=== PATIENT | female | born 1955 | race Two or more races ===

== ENCOUNTER → 2017-11-29 | Outpatient (CLI) | payer OTHER ==
[~2017-11-29] VITALS: Ht 152.4 cm; Wt 59.0 kg
[~2017-11-29] MED LIST: ALLEGRA ALLERG180 MG PO; ALTACE10 MG PO; ALTACE5 MG; ATORVASTATIN CA10 MG; ATORVASTATIN CA10 MG PO; CATAFLAM50 MG; CATAFLAM50 MG PO; CLOTRIMAZOLE-BE15 GM TP; DECADRON P4 MG/ML-1M IH; DEMEBORO OTIC DROPS OTIC; DICLOFENAC SODI75 MG PO; ESTRADIOL; FENOFIBRATE160 MG; FENOFIBRATE160 MG PO; FLEXERIL10 MG PO; GABAPENTIN100 MG; GABAPENTIN300 MG PO; GILTUSS TR TAB1 EACH PO; GLUMETZA1000 MG; GLUMETZA1000 MG PO; KETO10TA2 PO; MEDROLPACK PO; METFORMIN HCL1000 MG PO; NASONEX17 GM; NEURONTIN300 MG PO; OMEPRAZOLE40 MG; ORPH100T PO; PEPCID40 MG; PROVERA2.5 MG; SUPER B W/C1 CAP; SYMBICORT 16010.2 GM; SYMBICORT 16010.2 GM BC; SYMBICORT 80/10.2 GM IH; TORADOL60 MG IM; VITAMIN D5000 UNIT; VOLTAREM 75 MG PO; ZITHROMAX TRI-500 MG PO; ZYRTEC10 MG PO
== END | disposition home or self-care (01) ==
LOC: PPHC 16:45
DX: J02.9 Acute pharyngitis, unspecified (principal); K21.9 Gastro-esophageal reflux disease without esophagitis

== ENCOUNTER → 2017-12-01 08:32 | Outpatient (CLI) | payer OTHER | END | disposition home or self-care (01) | LOC: LAB 08:32 | DX: Z00.00 Encounter for general adult medical examination without abnormal findings (principal) ==

== ENCOUNTER → 2017-12-05 | Outpatient (CLI) | payer OTHER ==
[~2017-12-05] VITALS: Ht 152.4 cm; Wt 59.0 kg
== END | disposition home or self-care (01) ==
LOC: PPHC 15:20
DX: Z01.89 Encounter for other specified special examinations (principal)

== ENCOUNTER 2018-01-27 07:29 | Outpatient (CLI) | payer OTHER | END 2018-01-27 07:45 | disposition home or self-care (01) | LOC: LAB 07:29 | DX: E11.9 Type 2 diabetes mellitus without complications (principal) ==

== ENCOUNTER 2018-02-07 13:10 | Outpatient (CLI) | payer OTHER | END 2018-02-07 13:15 | disposition home or self-care (01) | LOC: RAD 13:10 | DX: R05 Cough (principal) ==

== ENCOUNTER → 2018-02-07 | Outpatient (CLI) | payer OTHER | END | disposition home or self-care (01) | LOC: PPHC 11:36 | DX: Z00.00 Encounter for general adult medical examination without abnormal findings (principal) ==

== ENCOUNTER 2018-03-29 08:37 | Outpatient (CLI) | payer OTHER | END 2018-03-29 08:48 | disposition home or self-care (01) | LOC: LAB 08:37 | DX: E11.65 Type 2 diabetes mellitus with hyperglycemia (principal); E10.65 Type 1 diabetes mellitus with hyperglycemia; E03.9 Hypothyroidism, unspecified ==

== ENCOUNTER 2018-05-31 12:02 | Outpatient (CLI) | payer OTHER | END 2018-05-31 15:00 | disposition home or self-care (01) | LOC: MAMO-SONO 12:02 | DX: Z12.31 Encounter for screening mammogram for malignant neoplasm of breast (principal); N60.11 Diffuse cystic mastopathy of right breast; N60.12 Diffuse cystic mastopathy of left breast; E11.9 Type 2 diabetes mellitus without complications; R94.5 Abnormal results of liver function studies; E13.10 Other specified diabetes mellitus with ketoacidosis without coma ==

== ENCOUNTER → 2018-05-31 | Outpatient (CLI) | payer OTHER | END | disposition home or self-care (01) | LOC: NUCLEAR 10:00 | DX: M81.0 Age-related osteoporosis without current pathological fracture (principal) ==

== ENCOUNTER 2018-06-06 09:31 | Outpatient (CLI) | payer OTHER | END 2018-06-06 09:36 | disposition home or self-care (01) | LOC: LAB 09:31 | DX: E11.65 Type 2 diabetes mellitus with hyperglycemia (principal); E03.8 Other specified hypothyroidism; E78.2 Mixed hyperlipidemia; E55.9 Vitamin D deficiency, unspecified; D64.89 Other specified anemias; N39.0 Urinary tract infection, site not specified; I20.1 Angina pectoris with documented spasm; I11.9 Hypertensive heart disease without heart failure ==

== ENCOUNTER 2018-06-13 14:56 | Outpatient (CLI) | payer OTHER | END 2018-06-13 15:06 | disposition home or self-care (01) | LOC: LAB 14:56 | DX: D64.89 Other specified anemias (principal) ==

== ENCOUNTER 2018-06-22 07:49 | Outpatient (CLI) | payer OTHER | END 2018-06-22 08:52 | disposition home or self-care (01) | LOC: NUCLEAR 07:49 | DX: I25.10 Atherosclerotic heart disease of native coronary artery without angina pectoris (principal) | CPT/HCPCS: A9500; 93017; 78452 ==

== ENCOUNTER 2018-08-04 10:58 | Outpatient (CLI) | payer OTHER | END 2018-08-04 13:49 | disposition home or self-care (01) | LOC: LAB 10:58 | DX: R50.9 Fever, unspecified (principal); J11.1 Influenza due to unidentified influenza virus with other respiratory manifestations ==

== ENCOUNTER 2018-08-04 13:30 | Emergency (ER) | payer OTHER ==
[~2018-08-04] VITALS: Ht 152.4 cm; Wt 61.7 kg
== END 2018-08-04 17:13 | disposition home or self-care (01) ==
LOC: ER 13:30
DX: J11.1 Influenza due to unidentified influenza virus with other respiratory manifestations (principal); B34.9 Viral infection, unspecified

== ENCOUNTER 2018-10-16 09:11 | Outpatient (CLI) | payer OTHER | END 2018-10-16 09:25 | disposition home or self-care (01) | LOC: MRI 09:11 | DX: M54.5 Low back pain (principal); E11.41 Type 2 diabetes mellitus with diabetic mononeuropathy; I10 Essential (primary) hypertension; M79.604 Pain in right leg | CPT/HCPCS: 72148 ==

== ENCOUNTER 2019-01-18 08:32 | Outpatient (CLI) | payer OTHER | END 2019-01-18 15:00 | disposition home or self-care (01) | LOC: LAB 08:32 | DX: E11.65 Type 2 diabetes mellitus with hyperglycemia (principal); E55.9 Vitamin D deficiency, unspecified; D64.89 Other specified anemias; I10 Essential (primary) hypertension ==

== ENCOUNTER 2019-08-02 09:52 | Outpatient (CLI) | payer OTHER | END 2019-08-02 10:00 | disposition home or self-care (01) | LOC: MAMO-SONO 09:52 | DX: N60.11 Diffuse cystic mastopathy of right breast (principal); N60.12 Diffuse cystic mastopathy of left breast ==

== ENCOUNTER 2019-08-02 12:58 | Outpatient (CLI) | payer OTHER | END 2019-08-02 15:00 | disposition home or self-care (01) | LOC: LAB 12:58 | DX: E11.65 Type 2 diabetes mellitus with hyperglycemia (principal); E88.2 Lipomatosis, not elsewhere classified; E03.8 Other specified hypothyroidism ==

== ENCOUNTER 2019-12-28 14:55 | Emergency (ER) | payer OTHER ==
[~2019-12-28] VITALS: Ht 152.4 cm; Wt 61.2 kg
[2019-12-28] MEDS ORDERED: XOPENEX CO1.25 MG/0. IH (21:40)
[2019-12-28] MEDS ORDERED: MUCINEX DM ER1 EAC1 PO (21:40)
[2019-12-28] MEDS ORDERED: BUDESONIDE0.5 MG/21 IH (21:40)
[2019-12-28] MEDS ORDERED: FLONASE ALLERG9.9 ML NASAL (21:40)
== END 2019-12-28 21:50 | disposition home or self-care (01) ==
LOC: ER 14:55
DX: J06.9 Acute upper respiratory infection, unspecified (principal)

== ENCOUNTER → 2020-04-08 07:45 | Outpatient (CLI) | payer OTHER ==
[~2020-04-08 07:45] MED LIST changes: +BUDESONIDE0.5 MG/21 IH; +FLONASE ALLERG9.9 ML NASAL; +MUCINEX DM ER1 EAC1 PO; +XOPENEX CO1.25 MG/0. IH
== END | disposition home or self-care (01) ==
LOC: LAB 07:45
DX: E03.8 Other specified hypothyroidism (principal); D64.89 Other specified anemias; E55.9 Vitamin D deficiency, unspecified; E11.65 Type 2 diabetes mellitus with hyperglycemia; E78.2 Mixed hyperlipidemia

== ENCOUNTER → 2020-07-23 08:28 | Outpatient (CLI) | payer OTHER | END | disposition home or self-care (01) | LOC: LAB 08:28 | PROVIDERS: ATTEND Internal Medicine Endocrinology, Diabetes & Metabolism | DX: D64.89 Other specified anemias (principal); E11.65 Type 2 diabetes mellitus with hyperglycemia; E78.2 Mixed hyperlipidemia ==

== ENCOUNTER → 2020-07-24 10:23 | Outpatient (CLI) | payer OTHER | END | disposition home or self-care (01) | LOC: LAB 10:23 | PROVIDERS: ATTEND Internal Medicine Cardiovascular Disease | DX: E11.9 Type 2 diabetes mellitus without complications (principal); I11.9 Hypertensive heart disease without heart failure ==

== ENCOUNTER 2021-11-02 13:36 | Emergency (ER) | payer OTHER ==
[~2021-11-02] VITALS: Ht 152.4 cm; Wt 58.5 kg
[2021-11-02] MEDS ORDERED: PANTOPRAZOLE SO20 MG PO (13:54)
[2021-11-02] MEDS ORDERED: GABAPENTIN100 M2 PO (13:55)
== END 2021-11-02 16:08 | disposition home or self-care (01) ==
LOC: ER 13:36
DX: G43.909 Migraine, unspecified, not intractable, without status migrainosus (principal)

== ENCOUNTER 2022-01-19 12:02 | Outpatient (CLI) | payer OTHER ==
[~2022-01-19 12:02] MED LIST changes: +GABAPENTIN100 M2 PO; +PANTOPRAZOLE SO20 MG PO
== END 2022-01-19 12:18 | disposition home or self-care (01) ==
LOC: MAMO-SONO 12:02
PROVIDERS: ATTEND Specialist
DX: N60.12 Diffuse cystic mastopathy of left breast (principal); N60.11 Diffuse cystic mastopathy of right breast

== ENCOUNTER 2022-05-14 09:55 | Outpatient (CLI) | payer OTHER | END 2022-05-14 15:00 | disposition home or self-care (01) | LOC: LAB 09:55 | DX: M19.90 Unspecified osteoarthritis, unspecified site (principal); M81.0 Age-related osteoporosis without current pathological fracture; Z79.899 Other long term (current) drug therapy ==

== ENCOUNTER 2022-08-06 07:39 | Outpatient (CLI) | payer OTHER | END 2022-08-06 07:46 | disposition home or self-care (01) | LOC: LAB 07:39 | PROVIDERS: ATTEND Internal Medicine Endocrinology, Diabetes & Metabolism | DX: E03.9 Hypothyroidism, unspecified (principal); E11.69 Type 2 diabetes mellitus with other specified complication; E11.22 Type 2 diabetes mellitus with diabetic chronic kidney disease; E11.40 Type 2 diabetes mellitus with diabetic neuropathy, unspecified; E78.2 Mixed hyperlipidemia; E55.9 Vitamin D deficiency, unspecified; D64.9 Anemia, unspecified; D57.1 Sickle-cell disease without crisis; J44.9 Chronic obstructive pulmonary disease, unspecified; K21.9 Gastro-esophageal reflux disease without esophagitis; M06.4 Inflammatory polyarthropathy; I73.9 Peripheral vascular disease, unspecified; I11.9 Hypertensive heart disease without heart failure; E78.5 Hyperlipidemia, unspecified; E04.1 Nontoxic single thyroid nodule; N18.30 Chronic kidney disease, stage 3 unspecified; Z12.11 Encounter for screening for malignant neoplasm of colon; Z68.24 Body mass index [BMI] 24.0-24.9, adult ==

== ENCOUNTER → 2022-08-09 09:43 | Outpatient (CLI) | payer OTHER | END | disposition home or self-care (01) | LOC: LAB 09:43 | PROVIDERS: ATTEND Specialist | DX: E11.22 Type 2 diabetes mellitus with diabetic chronic kidney disease (principal); N18.30 Chronic kidney disease, stage 3 unspecified; J44.9 Chronic obstructive pulmonary disease, unspecified; E11.69 Type 2 diabetes mellitus with other specified complication; E11.40 Type 2 diabetes mellitus with diabetic neuropathy, unspecified; I73.9 Peripheral vascular disease, unspecified; K21.9 Gastro-esophageal reflux disease without esophagitis; Z68.24 Body mass index [BMI] 24.0-24.9, adult; E78.5 Hyperlipidemia, unspecified; M06.4 Inflammatory polyarthropathy; I11.9 Hypertensive heart disease without heart failure; E55.9 Vitamin D deficiency, unspecified; E04.1 Nontoxic single thyroid nodule; Z12.11 Encounter for screening for malignant neoplasm of colon; E03.9 Hypothyroidism, unspecified; E78.2 Mixed hyperlipidemia; D64.9 Anemia, unspecified; D57.80 Other sickle-cell disorders without crisis ==

== ENCOUNTER 2022-08-12 10:00 | Outpatient (CLI) | payer OTHER | END 2022-08-12 10:04 | disposition home or self-care (01) | LOC: SONOGRAMA 10:00 | PROVIDERS: ATTEND Specialist | DX: E04.1 Nontoxic single thyroid nodule (principal) ==

== ENCOUNTER 2022-08-12 10:39 | Outpatient (CLI) | payer OTHER | END 2022-08-12 10:41 | disposition home or self-care (01) | LOC: NUCLEAR 10:39 | PROVIDERS: ATTEND Specialist | DX: M81.0 Age-related osteoporosis without current pathological fracture (principal) ==

== ENCOUNTER → 2022-12-28 | Outpatient (CLI) | payer OTHER | END | disposition home or self-care (01) | LOC: RAD 13:22 | PROVIDERS: ATTEND Specialist | DX: M77.10 Lateral epicondylitis, unspecified elbow (principal); E13.36 Other specified diabetes mellitus with diabetic cataract; N18.1 Chronic kidney disease, stage 1 ==

== ENCOUNTER 2023-02-07 09:26 | Outpatient (CLI) | payer OTHER | END 2023-02-07 09:31 | disposition home or self-care (01) | LOC: MAMO-SONO 09:26 | PROVIDERS: ATTEND Obstetrics & Gynecology | DX: N60.12 Diffuse cystic mastopathy of left breast (principal); N60.11 Diffuse cystic mastopathy of right breast ==

== ENCOUNTER 2023-06-20 10:21 | Outpatient (CLI) | payer OTHER | END 2023-06-20 10:32 | disposition home or self-care (01) | LOC: SONOGRAMA 10:21 | DX: N18.1 Chronic kidney disease, stage 1 (principal); E04.2 Nontoxic multinodular goiter ==

== ENCOUNTER 2023-12-14 08:01 | Outpatient (CLI) | payer OTHER | END 2023-12-14 08:05 | disposition home or self-care (01) | LOC: SONOGRAMA 08:01 | PROVIDERS: ATTEND Specialist | DX: R10.9 Unspecified abdominal pain (principal); R63.4 Abnormal weight loss; I12.9 Hypertensive chronic kidney disease with stage 1 through stage 4 chronic kidney disease, or unspecified chronic kidney disease; N18.2 Chronic kidney disease, stage 2 (mild); J44.9 Chronic obstructive pulmonary disease, unspecified; E11.40 Type 2 diabetes mellitus with diabetic neuropathy, unspecified ==

== ENCOUNTER 2024-07-08 12:05 | Outpatient (CLI) | payer OTHER | END 2024-07-08 12:14 | disposition home or self-care (01) | LOC: RAD 12:05 | PROVIDERS: ATTEND Specialist | DX: M17.0 Bilateral primary osteoarthritis of knee (principal); M06.4 Inflammatory polyarthropathy ==

== ENCOUNTER 2024-09-05 13:51 | Outpatient (CLI) | payer OTHER | END 2024-09-05 13:52 | disposition home or self-care (01) | LOC: NUCLEAR 13:51 | PROVIDERS: ATTEND Obstetrics & Gynecology | DX: M81.0 Age-related osteoporosis without current pathological fracture (principal); E55.9 Vitamin D deficiency, unspecified ==

== ENCOUNTER 2024-09-05 14:18 | Outpatient (CLI) | payer OTHER | END 2024-09-05 14:23 | disposition home or self-care (01) | LOC: MAMO-SONO 14:18 | PROVIDERS: ATTEND Obstetrics & Gynecology | DX: N60.11 Diffuse cystic mastopathy of right breast (principal); N60.12 Diffuse cystic mastopathy of left breast; Z12.31 Encounter for screening mammogram for malignant neoplasm of breast ==

== ENCOUNTER 2024-12-30 12:10 | Outpatient (CLI) | payer OTHER | END 2024-12-30 12:13 | disposition home or self-care (01) | LOC: SONOGRAMA 12:10 | PROVIDERS: ATTEND Obstetrics & Gynecology | DX: E04.1 Nontoxic single thyroid nodule (principal) ==